=== PATIENT | female | born 1980 | race Hispanic/Latino ===

== ENCOUNTER 2024-11-11 15:57 | Emergency (ER) | payer BC ==
[~2024-11-11] VITALS: Ht 157.5 cm; Wt 63.5 kg
[2024-11-11 16:03] VITALS: TEMP 98.6
--- NOTE | 2024-11-11 16:15 | ERN ---
General Chief Complaint: Weakness Stated Complaint: N/V Time Seen by MD: 15:59 Source: patient History of Present Illness Initial Comments Patient is a 44-year-old female coming in to be evaluated with multiple complaints. Patient states he has a extensive history psychiatric illness such as PTSD, anxiety, depression. States that these symptoms and her previous di agnosis make her lose her appetite. She has not been eating well and has been losing weight for some time. At times she has episodes of vomiting. Allergies: Coded Allergies: No Known Drug Allergies (Unverified Allergy, Unknown, 11/11/24) ROS Dictation CONSTITUTIONAL: No chills, no fever, no weakness, no diaphoresis, no malaise. HEAD/FACE: No signs of trauma. EENT: No eye pain, no blurred vision, no tearing, no double vision, no ear pain, no ear discharge, no nose pain, no nasal congestion, no throat pain, no throat swelling, no mouth pain. RESPIRATORY: No cough, no orthopnea, no SOB, no stridor, no wheezing. CARDIOVASCULAR: No chest pain, no edema, no palpitations, no syncope. GASTROINTESTINAL/ABDOMINAL: No abdominal pain, no constipation, no diarrhea, no nausea, no vomiting. GENITOURINARY: No abnormal discharge, no dysuria, no frequent urination, no hematuria. No complaints of pain in the genitals. MUSCULOSKELETAL: No back pain, no gout, no joint pain, no joint swelling, no muscle pain, no muscle stiffness, no neck pain. INTEGUMENTARY: No change in color, no change in hair/nails, no dryness, no lesion, no lumps, no rash. NEUROLOGICAL/PSYCH: No anxiety, not depressed, no emotional problem, no headache, no numbness, no pre-existing deficit, no history of seizures, no tremors, no weakness. HEMATOLOGIC/LYMPHATIC: Not anemic, no history of blood clots, no apparent bleeding, no bruising, glands not swollen. All Systems Negative, Except as Noted. Physical Exam Physical Exam Dictation VITAL SIGNS: Reviewed. GENERAL APPEARANCE: Alert, oriented x3, no acute distress, obese. HEAD AND FACE: Non-traumatic. EYES: PERRL, pink conjunctivas, eyelid no trauma, anterior chamber clear. EARS: Pinnas intact and no signs of trauma or erythema. Ear canals clear and no discharge. TMs no erythema. NOSE: No discharge, no bleeding. OROPHARYNX: Mouth normal, teeth no caries, tongue pink. Pharynx clear, no erythema. Tonsils no exudates, no abscesses noted. Mucous membrane moist. NECK: Supple, non-tender, no thyromegaly, no masses, no JVD, no bruits. BREAST: Deferred. CHEST: No tenderness, no crepitus, no paradoxical movement, no retractions. LUNGS: Clear, well-ventilated, symmetric, no rales, no wheezing, no rhonchi, no stridor, good breath sounds bilaterally. HEART: Regular rate, regular rhythm, no murmur, no gallops. VASCULAR: No peripheral edema. ABDOMEN: Soft, positive bowel sounds, nondistended, no guarding, nontender, no rebound, no masses no hepatomegaly, no splenomegaly, no Tsai's sign, no hernias. RECTAL: Deferred. GENITAL: Deferred. NEUROLOGICAL: Normal speech, gross motor function intact, gross sensory function intact. MUSCULOSKELETAL: Neck nontender, full range of motion, back nontender, full range of motion. EXTREMITIES: Nontender, full range of motion. SKIN: Color pink, dry, no turgor, no rash, no lacerations, no abrasions, no contusions. LYMPHATICS: Deferred. Results Laboratory and Microbiology Lab and Micro Result Laboratory Tests Test 11/11/24 16:16 11/11/24 17:34 White Blood Count 7.8 K/uL (4.8-10.8) Red Blood Count 4.31 MIL/uL (4.00-5.50) Hemoglobin 12.1 g/dL (12.0-16.0) Hematocrit 36.6 % (36-48) Mean Corpuscular Volume 84.9 fL (79-99) Mean Corpuscular Hemoglobin 28.1 pg (27.0-33.0) Mean Corpuscular Hemoglobin Concent 33.1 g/dL (32.0-36.0) Red Cell Distribution Width 14.0 % (11.0-15.5) Platelet Count 219 K/uL (130-400) Mean Platelet Volume 10.4 fL (7.5-10.5) Immature Granulocyte % (Auto) 0.3 % (0-1) Neutrophils (%) (Auto) 80.6 % (40.0-77.0) H Lymphocytes (%) (Auto) 14.7 % (21.0-51.0) L Monocytes (%) (Auto) 3.6 % (3.0-13.0) Eosinophils (%) (Auto) 0.3 % (0.0-8.0) Basophils (%) (Auto) 0.5 % (0.0-5.0) Neutrophils # (Auto) 6.3 K/uL (1.8-7.7) Lymphocytes # (Auto) 1.2 K/uL (1.0-4.8) Monocytes # (Auto) 0.3 K/uL (0.1-1.0) Eosinophils # (Auto) 0.02 K/uL (0.00-0.70) Basophils # (Auto) 0.04 K/uL (0.00-0.20) Absolute Immature Granulocyte (auto 0.02 K/uL (0-1) Nucleated Red Blood Cells 0.0 % (0.0-0.19) Sodium Level 140 mmol/L (136-145) Potassium Level 3.5 mmol/L (3.5-5.1) Chloride Level 103 mmol/L (101-111) Carbon Dioxide Level 26 mmol/L (21-32) Blood Urea Nitrogen 12 mg/dL (7-18) Creatinine 0.6 mg/dL (0.5-1.0) Glomerular Filtration Rate Calc 115 mL/min (>90) Random Glucose 130 mg/dL (70-105) H Total Calcium 9.2 mg/dL (8.5-10.1) Total Bilirubin 0.5 mg/dL (0.2-1.0) Aspartate Amino Transf (AST/SGOT) 15 U/L (10-37) Alanine Aminotransferase (ALT/SGPT) 16 U/L (12-78) Alkaline Phosphatase 70 U/L (50-136) Total Creatine Kinase 65 U/L (21-232) Troponin I High Sensitivity < 4 ng/L (4-50) L Total Protein 7.4 g/dL (6.0-8.3) Albumin 3.9 g/dL (3.5-5.0) Lipase 22 U/L (16-77) Urine Color YELLOW (YELLOW) Urine Appearance CLOUDY (CLEAR) H Urine pH 5.5 (5.0-8.0) Urine Specific [place] 1.027 (1.001-1.031) Urine Protein 20 mg/dL (NEGATIVE) H Urine Glucose (UA) NEGATIVE mg/dL (NEGATIVE) Urine Ketones 60 mg/dL (NEGATIVE) H Urine Occult Blood NEGATIVE (NEGATIVE) Urine Nitrate NEGATIVE (NEGATIVE) Urine Bilirubin NEGATIVE mg/dL (NEGATIVE) Urine Urobilinogen 0.2 mg/dL (0.2-1.0) Urine Leukocyte Esterase NEGATIVE [place]/uL Urine RBC 0-1 /HPF (0-1) Urine WBC 2-5 /HPF (0-1) H Urine Squamous Epithelial Cells FEW /HPF (0-2) Urine Bacteria RARE /HPF (None Seen) Urine Hyaline Casts 0-1 /LPF (0-1 /LPF) Urine Other Casts 1 /LPF (None Seen) Labs Reviewed?: Yes EKG/XRAY/US/CT/MRI EKG Comment 11/11/2024 time 4:06 p.m. Ventricular rate 60 Sinus rhythm [place] [address] wave elevation or depression MDM MDM: Differential diagnosis: DEHYDRATION, ANXIETY, DEPRESSION, Rationale: Tests considered and ordered secondary to shared decision making include: Previous outside records reviewed: Old ER visits. Risk of complication and/or morbidity or mortality of patient management: None Medications-Per medication reconciliation Need for hospitalization: Patient does not meet criteria for hospitalization. PATIENT IS A 44-YEAR-OLD FEMALE COMING IN TO BE EVALUATED FOR GENERALIZED BODY WEAKNESS AND ANOREXIA. PER PATIENT SHE DOES HAS A HISTORY OF DEPRESSION WITH ANOREXIA. LABORATORY WORKUP WITHIN NORMAL LIMITS. PATIENT WAS HYDRATED WITH IV FLUIDS GIVEN PROTON PUMP INHIBITORS HE WILL BE DISCHARGED IN STABLE CONDITION. ED Course Orders Procedure Category Date Status Time Cbc With Differential LAB 11/11/24 Complete 16:02 Comprehensive LAB 11/11/24 Complete Metabolic Panel 16:02 Troponin I High LAB 11/11/24 Complete Sensitivity 16:02 Urinalysis Profile LAB 11/11/24 Complete 16:02 12 Lead Ekg Tracing- EKG 11/11/24 Logged Technical 16:02 Lactated Ringers PHA 11/11/24 Complete 1000ml (Lactated 16:30 Creatine Kinase, Total LAB 11/11/24 Complete 16:02 Lipase LAB 11/11/24 Complete 16:02 Pantoprazole 40mg Inj PHA 11/11/24 Complete (Protonix 40mg Inj 16:30 Current Medications Medications (Trade) Dose Ordered Sig/Liya Route PRN Reason Start Time Stop Time Status Last Admin Dose Admin Lactated Ringer's 1,000 ml @ 0 mls/hr ONCE ONCE IV 11/11/24 16:30 11/11/24 16:31 DC 11/11/24 16:37 Pantoprazole Sodium (PROTonix 40MG INJ) 40 mg ONCE ONCE IVP 11/11/24 16:30 11/11/24 16:31 DC 11/11/24 16:37 Vital Signs Date Time Temp Pulse Resp B/P (MAP) Pulse Ox O2 Delivery O2 Flow Rate FiO2 11/11/24 17:26 68 20 111/71 99 Room Air* 0 21 11/11/24 16:03 98.6 70 17 124/69 97 Room Air 0 DX & DISP Disposition: Discharge Departure Impression: Primary Impression: Dehydration Additional Impression: Anorexia mentalis Condition: Stable Scripts Pantoprazole Sodium (Protonix) 40 Mg Ectab 1 TAB PO DAILY for 30 Days, #30 TAB 0 Refills Prov: KASSIDY FOREMAN MD 11/11/24 Additional Instructions: FOLLOW-UP WITH PRIMARY CARE PROVIDER IN 1 TO 2 DAYS. TAKE MEDICATIONS DIRECTED HERE IN THE EMERGENCY ROOM. OKAY TO CONTINUE HOME MEDICATIONS UNLESS OTHERWISE DISCUSSED DURING YOUR VISIT IN THE EMERGENCY ROOM TODAY. RETURN TO YOUR NEAREST EMERGENCY ROOM IF SYMPTOMS WORSEN OR IF THERE IS NO IMPROVEMENT. CALL 911 IF YOU NEED IMMEDIATE ASSISTANCE. TAKE TYLENOL [id number] NEEDED AND IF NO CONTRAINDICATIONS ARE PRESENT. INCREASE ORAL HYDRATION. A WOUND CULTURE OR URINE CULTURE WAS ORDERED HERE IN THE EMERGENCY ROOM DEPARTMENT PLEASE FOLLOW-UP WITH PRIMARY CARE PROVIDER AND ADVISE THEM TO GET REPORTS FROM OUR FACILITY. IF YOU HAD ANY CAITLIN WRAP/SPLINTS THAT WERE APPLIED HERE, PLEASE DO NOT REMOVE THEM UNTIL YOU SEE YOUR PRIMARY CARE OR SPECIALTY. REFERRALS: Referrals: SELF,REFERRAL (PCP) GRACE LEÓN MD Time of Disposition: 17:51 KASSIDY FOREMAN MD Nov 11, 2024 16:15
[2024-11-11 16:25] LABS: BASOPHILS # (AUTO) 0.04 K/uL (0.00-0.20); BASOPHILS % (AUTO) 0.5 % (0.0-5.0); EOSINOPHILS # (AUTO) 0.02 K/uL (0.00-0.70); EOSINOPHILS % (AUTO) 0.3 % (0.0-8.0); HEMATOCRIT 36.6 % (36-48); IMMATURE GRANULOCYTE ABSOLUTE 0.02 K/uL (0-1); LYMPHOCYTES # (AUTO) 1.2 K/uL (1.0-4.8); LYMPHOCYTES % (AUTO) 14.7 % (21.0-51.0); MEAN CORPUSCULAR HEMOGLOBIN 28.1 pg (27.0-33.0); MEAN CORPUSCULAR HGB CONC 33.1 g/dL (32.0-36.0); MEAN CORPUSCULAR VOLUME 84.9 fL (79-99); MONOCYTES # (AUTO) 0.3 K/uL (0.1-1.0); MONOCYTES % (AUTO) 3.6 % (3.0-13.0); NEUTROPHILS # (AUTO) 6.3 K/uL (1.8-7.7); NEUTROPHILS % (AUTO) 80.6 % (40.0-77.0); PLATELET COUNT (AUTO) 219 K/uL (130-400); RED BLOOD CELL COUNT(AUTO) 4.31 MIL/uL (4.00-5.50); WHITE BLOOD COUNT (AUTO) 7.8 K/uL (4.8-10.8)
[2024-11-11] MEDS: LACTATED RINGERS 1000ML 1,000 ML IV ONE (16:37)
[2024-11-11] MEDS: PANTOPrazole 40 MG/VIAL IVP ONE (16:37)
[2024-11-11 16:42] LABS: ALBUMIN 3.9 g/dL (3.5-5.0); BILIRUBIN,TOTAL 0.5 mg/dL (0.2-1.0); CREATININE 0.6 mg/dL (0.5-1.0); POTASSIUM 3.5 mmol/L (3.5-5.1); TOTAL PROTEIN, SERUM 7.4 g/dL (6.0-8.3)
[2024-11-11 17:26] VITALS: BP 111/71; PULSE 68; RESP 20; O2SAT 99
[2024-11-11 17:43] LABS: APPEARANCE,URINE CLOUDY (CLEAR); BILIRUBIN,URINE NEGATIVE (NEGATIVE); COLOR,URINE YELLOW (YELLOW); GLUCOSE, URINE (UA) NEGATIVE (NEGATIVE); KETONES,URINE 60 mg/dL (NEGATIVE); LEUKOCYTE ESTERASE ,URINE NEGATIVE Leu/uL (NEGATIVE); NITRATE,URINE NEGATIVE (NEGATIVE); OCCULT BLOOD,URINE NEGATIVE (NEGATIVE); PH,URINE 5.5 (5.0-8.0); PROTEIN,URINE 20 mg/dL (NEGATIVE); UROBILINOGEN,URINE 0.2 mg/dL (0.2-1.0)
[2024-11-11 17:44] LABS: ADD UA MICROSCOPIC YES
[2024-11-11 17:47] LABS: BACTERIA,URINE RARE /HPF (None Seen); HYALINE CASTS, URINE 0-1 /LPF (0-1 /LPF); MUCUS,URINE FEW LPF (None Seen); OTHER CASTS, URINE 1 /LPF (None Seen); RBC,URINE 0-1 /HPF (0-1); SQUAMOUS EPITHELIAL CELL,UR FEW /HPF (0-2)
[2024-11-11] MEDS ORDERED: PANT40TA55 PO (17:53)
--- NOTE | 2024-11-11 19:27 | EKG ---
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
== END 2024-11-11 18:10 | disposition home or self-care (01) ==
LOC: EDH 15:57
DX: E86.0 Dehydration (principal); F50.00 Anorexia nervosa, unspecified
CPT/HCPCS: 99284; 96374; 96361; 82550; 84484; 80053; 83690; 85025; 81001; 36415; 93005; J7120; J2470